=== PATIENT | male | born 1940 | race Two or more races ===

== ENCOUNTER 2020-08-21 16:10 | Emergency (ER) | payer OTHER ==
[~2020-08-21] VITALS: Ht 175.3 cm; Wt 77.1 kg
[2020-08-21 16:22] VITALS: BP 148/78
[2020-08-21 16:43] LABS: Basophils # (auto) 0.1 10 ^3/uL (0-0.2); Basophils % (auto) 0.7 % (0.0-2.0); Eosinophils # (auto) 0.1 10 ^3/uL (0-0.8); Hematocrit 40.1 % (41.0-53.0); Hemoglobin 13.8 g/dL (13.5-17.5); Lymphocytes # (auto) 2.1 10 ^3/uL (0.4-5.4); Lymphocytes % (auto) 28.9 % (10.0-50.0); Mean Corpuscular Hgb Conc. 34.4 g/dL (32.0-36.0); Mean Corpuscular Volume 95.9 fL (80.0-100.0); Monocytes # (auto) 0.7 10 ^3/uL (0-1.3); Monocytes % (auto) 9.8 % (0.0-12.0); Neutrophils # (auto) 4.4 10 ^3/uL (1.6-8.6); Neutrophils % (auto) 59.6 % (37.0-80.0); Platelet Count (auto) 252 10^3/uL (140-450); Red Blood Cells 4.18 10^6/uL (4.5-5.90); Red Cell Distribution Width 13.2 % (11.8-14.3); White Blood Cell 7.4 10^3/uL (4.4-10.8)
[2020-08-21 17:04] LABS: Calcium 8.3 mg/dL (8.5-10.1); Potassium 3.9 mmol/L (3.5-5.1)
[2020-08-21 17:05] LABS: INR 0.99 (0.9-1.15); Partial Thromboplastin Time 30.7 sec (23.0-31.2)
[2020-08-21 17:07] LABS: BUN/Creatinine Ratio 29.3; Bilirubin, Total 1.5 mg/dL (0.2-1.0); Total Protein 6.7 g/dL (6.4-8.2)
[2020-08-21] MEDS: HYDROcodone-ACET 10/325MG TAB PO ONE (17:27)
== END 2020-08-21 18:47 | disposition home or self-care (01) ==
LOC: ER 16:10
DX: R04.0 Epistaxis (principal); I48.91 Unspecified atrial fibrillation; E44.1 Mild protein-calorie malnutrition; Z68.25 Body mass index [BMI] 25.0-25.9, adult
CPT/HCPCS: 30901; 36415; 80053; 84484; 85025; 85610; 85730

== ENCOUNTER → 2020-09-07 | Emergency (ER) | payer OTHER, MEDICARE ==
[~2020-09-07] VITALS: Ht 177.8 cm; Wt 77.1 kg
[2020-09-07 16:12] VITALS: BP 156/66
[2020-09-07 16:51] LABS: Basophils # (auto) 0 10 ^3/uL (0-0.2); Basophils % (auto) 0.4 % (0.0-2.0); Eosinophils # (auto) 0 10 ^3/uL (0-0.8); Eosinophils % (auto) 0.8 % (0.0-7.0); Hematocrit 39.7 % (41.0-53.0); Hemoglobin 13.4 g/dL (13.5-17.5); Lymphocytes # (auto) 1.1 10 ^3/uL (0.4-5.4); Lymphocytes % (auto) 18.7 % (10.0-50.0); Mean Corpuscular Hemoglobin 32.1 pg (28.0-32.0); Mean Corpuscular Hgb Conc. 33.7 g/dL (32.0-36.0); Mean Corpuscular Volume 95.1 fL (80.0-100.0); Monocytes # (auto) 0.4 10 ^3/uL (0-1.3); Monocytes % (auto) 7.8 % (0.0-12.0); Neutrophils # (auto) 4.1 10 ^3/uL (1.6-8.6); Neutrophils % (auto) 72.3 % (37.0-80.0); Nucleated Red Blood Cells % 0.1 %; Platelet Count (auto) 324 10^3/uL (140-450); Red Blood Cells 4.18 10^6/uL (4.5-5.90); White Blood Cell 5.7 10^3/uL (4.4-10.8)
[2020-09-07 17:07] LABS: INR 1.06 (0.9-1.15); Partial Thromboplastin Time 30.7 sec (23.0-31.2)
[2020-09-07 17:31] LABS: Albumin 2.9 g/dL (3.4-5.0); BUN/Creatinine Ratio 18.3; Bilirubin, Total 0.6 mg/dL (0.2-1.0); Calcium 8.2 mg/dL (8.5-10.1); Potassium 3.5 mmol/L (3.5-5.1); Total Protein 6.8 g/dL (6.4-8.2)
== END | disposition home or self-care (01) ==
LOC: ER 15:34
DX: R04.0 Epistaxis (principal); I48.91 Unspecified atrial fibrillation
CPT/HCPCS: 30901; 36415; 71046; 80053; 85025; 85610; 85730

== ENCOUNTER 2020-09-08 13:41 | Emergency (ER) | payer OTHER, MEDICARE ==
[~2020-09-08] VITALS: Ht 177.8 cm; Wt 77.1 kg
[2020-09-08 15:54] VITALS: BP 140/76
== END 2020-09-08 16:24 | disposition home or self-care (01) ==
LOC: ER 13:41
DX: R04.0 Epistaxis (principal); I48.91 Unspecified atrial fibrillation

== ENCOUNTER 2024-10-26 10:59 | Emergency (ER) | payer OTHER ==
[~2024-10-26] VITALS: Ht 177.8 cm; Wt 71.8 kg
[2024-10-26 11:54] VITALS: PULSE 70; RESP 18; O2SAT 96
[2024-10-26 11:56] VITALS: PULSE 70; TEMP 97.5
[2024-10-26] MEDS: SODIUM CHLORIDE 0.9% 1,000 ML IV ONE (13:38)
--- NOTE | 2024-10-26 13:45 | DVH ---
XY CHEST PORTABLE, HISTORY: dizzy COMPARISON: None None TECHNICAL DATA: 1 view of the chest was obtained. FINDINGS: Lines and tubes: None Cardiomediastinal silhouette: normal Pulmonary vasculature: normal Lung expansion: normal Lung airspace: normal Lung interstitium: normal Pleura: normal Pneumothorax: no Bones: Unremarkable Other: no IMPRESSION: No acute intrathoracic abnormality.
--- NOTE | 2024-10-26 13:47 | DVH ---
EXAM: CT HEAD WITHOUT CONTRAST HISTORY: dizzy COMPARISON: None TECHNIQUE: Axial images of the head were obtained and reformatted in coronal and sagittal planes. All CT scans at this medical facility are performed using dose modulation techniques as appropriate t o a performed exam including the following: Automated exposure control was utilized; adjustment of th e MA and/or KV according to patient size; and use of iterative reconstruction technique. CT Dose: CTDI volume is 58 mGy. Dose-length product is 1155 mGy*cm FINDINGS: There is no evidence of acute intracranial hemorrhage, mass, mass effect midline shift. There is no h ydrocephalus or extra-axial fluid collection. Ba-white matter differentiation is maintained. The visualized paranasal sinuses and mastoid air cells are clear. The calvarium is intact. IMPRESSION: 1. No acute intracranial process. HS:Y
--- NOTE | 2024-10-26 13:56 | ED.PDOC ---
History of Present Illness HPI Comments 84Y M with PMHx BPH presents to ED for chief complaint intermittent dizziness x1year with diarrhea x1day. Pt states last dizzy episode was yesterday and it lasted approximately 2 minutes. Pt has never seen a provider for it. Pt denies chest pain and SOB. Pt denies all recent falls. Pt denies dizziness at time of ED evaluation. Chief Complaint: Dizziness Time Seen by MD: 13:20 Primary Care Provider: MONI Reviewed Notes: Nurses Notes, Medications, Allergies Allergies: Coded Allergies: NO KNOWN ALLERGIES (Unverified , 08/21/20) Information Source: Patient Mode of Arrival: Ambulatory Severity: Mild Timing: Months Duration: Since onset Past Medical History PAST MEDICAL HISTORY: AFIB Surgical History: Denies all surgeries Family History Family History: Unknown Social History Smoker: Non-Smoker Alcohol: Denies ETOH Use Drugs: Denies Drug Use Lives In: Home Constitutional: denies: chills, diaphoresis, fatigue, fever, malaise, sweats, weakness, others EENTM: denies: blurred vision, double vision, ear bleeding, ear discharge, ear drainage, ear pain, ear ringing, eye pain, eye redness, hearing loss, mouth pain, mouth swelling, nasal discharge, nose bleeding, nose congestion, nose pain, photophobia, tearing, throat pain, throat swelling, voice changes, others Respiratory: denies: cough, hemoptysis, orthopnea, SOB at rest, shortness of breath, SOB with excertion, stridor, wheezing, others Cardiovascular: denies: chest pain, dizzy spells, diaphoresis, Dyspnea on exertion, edema, irregular heart beat, left arm pain, lightheadedness, palpitations, PND, syncope, others Gastrointestinal: reports: diarrhea; denies: abdomen distended, abdominal pain, blood streaked bowels, constipated, dysphagia, difficulty swallowing, hematemesis, melena, nausea, poor appetite, poor fluid intake, rectal bleeding, rectal pain, vomiting, others Genitourinary: denies: burning, dysuria, flank pain, frequency, hematuria, i ncontinence, penile discharge, penile sore, pain, testicle pain, testicle swelling, urgency, others Neurological: reports: dizziness; denies: fainting, headache, left sided numbness, left sided weakness, numbness, paresthesia, pre-existing deficit, right sided numbness, right sided weakness, seizure, speech problems, tingling, tremors, weakness, others Musculoskeletal: denies: back pain, gout, joint pain, joint swelling, muscle pain, muscle stiffness, neck pain, others Integumetry: denies: bruises, change in color, change in hair/nails, dryness, l aceration, lesions, lumps, rash, wounds, others Allergic/Immunocompromised: denies: Difficulty Healing, Frequent Infections, Hives, Itching, others Hematologic/Lymphatic: denies: anemia, blood clots, easy bleeding, easy bruising, swollen glands, others Endocrine: denies: excessive hunger, excessive sweating, excessive thirst, excessive urination, flushing, intolerance to cold, intolerance to heat, unexplained weight gain, unexplained weight loss, others Psychiatric: denies: anxiety, bipolar disorder, depression, hopeless, panic disorder, schizophrenia, sleepless, suicidal, others All Other Systems: Reviewed and Negative Physical Exam General Appearance: No Apparent Distress, Normal HEENT: Normal ENT Inspection, Pharynx Normal, TMs Normal Neck: Full Range of Motion, Non-Tender, Normal, Normal Inspection Respiratory: Chest Non-Tender, Lungs Clear, No Accessory Muscle Use, No Respiratory Distress, Normal Breath Sounds Cardiovascular: No Edema, No JVD, No Murmur, No Gallop, Normal Peripheral Pulses, Regular Rate/Rhythm Breast Exam: Deferred Gastrointestinal: No Organomegaly, Non Tender, No Pulsatile Mass, Normal Bowel Sounds, Soft Genitalia: Deferred Pelvic: Deferred Rectal: Deferred Extremities: No calf tenderness, Normal capillary refill, Normal inspection, Normal range of motion, Non-tender, No pedal edema Musculoskeletal : Apperance: Normal 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 Was a procedure done?: No Differential Dx Considerations may include: Dehydration, vertigo, CVA, ACS, electrolyte abnormality, renal dysfunction X-Ray, Labs, Meds, VS Vital Signs Date Time Temp Pulse Resp B/P (MAP) Pulse Ox O2 Delivery O2 Flow Rate FiO2 10/26/24 14:25 65 136/65 (88) 97 10/26/24 11:56 97.5 70 18 133/73 (93) 96 97.5 10/26/24 11:54 70 18 96 Room Air* 0 21 10/26/24 11:38 69 10/26/24 11:36 97.7 70 14 99/53 (68) 95 Lab Test 10/26/24 13:46 Range/Units White Blood Count 5.0 4.4-10.8 10^3/uL Red Blood Count 4.27 L 4.5-5.90 10^6/uL Hemoglobin 14.1 13.5-17.5 g/dL Hematocrit 40.2 L 41.0-53.0 % Mean Corpuscular Volume 94.0 80.0-100.0 fL Mean Corpuscular Hemoglobin 32.9 H 28.0-32.0 pg Mean Corpuscular Hemoglobin Concent 35.0 32.0-36.0 g/dL Red Cell Distribution Width 14.3 11.8-14.3 % Platelet Count 258 140-450 10^3/uL Mean Platelet Volume 6.4 L 6.9-10.8 fL Neutrophils (%) (Auto) 57.9 37.0-80.0 % Lymphocytes (%) (Auto) 29.7 10.0-50.0 % Monocytes (%) (Auto) 10.3 0.0-12.0 % Eosinophils (%) (Auto) 1.1 0.0-7.0 % Basophils (%) (Auto) 1.0 0.0-2.0 % Neutrophils # (Auto) 2.9 1.6-8.6 10 ^3/uL Lymphocytes # (Auto) 1.5 0.4-5.4 10 ^3/uL Monocytes # (Auto) 0.5 0-1.3 10 ^3/uL Eosinophils # (Auto) 0.1 0-0.8 10 ^3/uL Basophils # (Auto) 0.1 0-0.2 10 ^3/uL Nucleated Red Blood Cells 0.1 % Sodium Level 140 136-145 mmol/L Potassium Level 4.1 3.5-5.1 mmol/L Chloride Level 107 98-107 mmol/L Carbon Dioxide Level 25 20-31 mmol/L Anion Gap 8 5-15 Blood Urea Nitrogen 18 9-23 mg/dL Creatinine 0.79 0.700-1.30 mg/dL Glomerular Filtration Rate Calc 87 >90 mL/min BUN/Creatinine Ratio 22.8 H 10.0-20.0 Serum Glucose 89 74-106 mg/dL Calcium Level 9.7 8.7-10.4 mg/dL Troponin I High Sensitivity 7 </=54 ng/L Lipase 31 12-53 U/L Current Medications Medications (Trade) Dose Ordered Sig/Trent Route Start Time Stop Time Status Last Admin Sodium Chloride 1,000 ml @ 1,000 mls/hr Q1H ONCE IV 10/26/24 13:30 10/26/24 14:29 DC 10/26/24 13:38 [place] [id number] Ph: [phone] DIAGNOSTIC IMAGING Diagnostic Imaging Report : [id number] Signed PATIENT: LUCIANA PRATT ACCT: [id number] UNIT: [id number] : 1940 LOC: ER ROOM / BED: / AGE / SEX: 84 / M ADM STATUS: REG ER SERVICE [id number] ORDERING PHYSICIAN: SHIVA CARVER MD PROCEDURE(s): HWOCT - HEAD WITHOUT CONTRAST REASON: dizzy ORDER NUMBER(s): [id number], ACCESSION NUMBER(s): [id number] EXAM: CT HEAD WITHOUT CONTRAST HISTORY: dizzy COMPARISON: None TECHNIQUE: Axial images of the head were obtained and reformatted in coronal and sagittal planes. All CT scans at this medical facility are performed using dose modulation techniques as appropriate to a performed exam including the following: Automated exposure control was utilized; adjustment of the MA and/or KV according to patient size; and use of iterative reconstruction technique. CT Dose: CTDI volume is 58 mGy. Dose-length product is 1155 mGy*cm FINDINGS: There is no evidence of acute intracranial hemorrhage, mass, mass effect midline shift. There is no hydrocephalus or extra-axial fluid collection. Ba-white matter differentiation is maintained. The visualized paranasal sinuses and mastoid air cells are clear. The calvarium is intact. IMPRESSION: 1. No acute intracranial process. HS:Y ATED BY: SANDER VALDEZ MD DICTATED DATE/TIME: 01/17/25 1345 SIGNED BY: SANDER VALDEZ MD SIGNED DATE/TIME: 10/26/241344 CC: [place] [address] Ph: [phone] DIAGNOSTIC IMAGING Diagnostic Imaging Report : [id number] Signed PATIENT: LUCIANA PRATT ACCT: [id number] UNIT: [id number] : 1940 LOC: ER ROOM / BED: / AGE / SEX: 84 / M ADM STATUS: REG ER SERVICE ORDERING PHYSICIAN: SHIVA CARVER MD PROCEDURE(s): CXRP - CHEST PORTABLE REASON: dizzy ORDER NUMBER(s): [id number], ACCESSION NUMBER(s): [id number] XY CHEST PORTABLE, HISTORY: dizzy COMPARISON: None None TECHNICAL DATA: 1 view of the chest was obtained. FINDINGS: Lines and tubes: None Cardiomediastinal silhouette: normal Pulmonary vasculature: normal Lung expansion: normal Lung airspace: normal Lung interstitium: normal Pleura: normal Pneumothorax: no Bones: Unremarkable Other: no IMPRESSION: No acute intrathoracic abnormality. ATED BY: JUAN M ANTONIO MD DICTATED DATE/TIME: 10/26/241341 SIGNED BY: JUAN M ANTONIO MD SIGNED DATE/TIME: 10/26/241341 CC: X-Ray, Labs, Meds, VS Comment 84-year-old male here today with complaints of dizziness that lasted approximately 2 minutes yesterday but has been intermittent over the last year. Vital signs stable, afebrile. Physical exam as above without any acute findings. Neurologic exam normal. Patient also with a normal gait. Labs overall reassuring without evidence of end-organ damage. CT scan of the head without any evidence of acute pathology. Chest x-ray without any evidence of acute pathology as well. Patient was given a L of normal saline via IV and stated that he felt significantly improved afterwards. I had a long discussion with the patient about maintaining good hydration and drinking plenty of water as this may be the source of his intermittent dizziness. Patient expressed understanding of this. Patient was also instructed to follow up with his primary care provider within 2-3 days for re-evaluation. Patient was instructed to return to the emergency department should he have any return of these dizziness, vision changes, chest pain, numbness, weakness, fevers, p.o. intolerance, or any other concerning symptoms. Patient expressed understanding and was discharged home in stable condition ambulating with a steady gait no distress and without any assistance. Time of 1ST Reevaluation: 13:50 Reevaluation 1ST: Unchanged Patient Education/Counseling: Diagnosis, Treatment Family Education/Counseling: No Family Present Departure 1 Departure Time of Disposition: 22:08 Impression: Primary Impression: Dizzy Additional Impression: Dehydration Disposition: 01 HOME / SELF CARE / HOMELESS Condition: Stable Critical Care Note Critical Care Time?: No Stability Stability form required: No Heart Score Heart Score: Heart Score Response (Comments) Value History N/A 0 EKG N/A 0 Age N/A 0 Risk Factors N/A 0 Troponin N/A 0 Total 0 I personally scribed for SHIVA CARVER [facility] on 10/26/24 at 13:55. Electronically submitted by Oksana Christie ([employer]). I personally scribed for SHIVA CARVER MD ([facility] on 10/26/24 at 13:57. Electronically submitted by Oksana Christie ([employer]). I personally scribed for SHIVA CARVER MD ([facility] on 10/26/24 at 13:57. Electronically submitted by Oksana Christie ([employer]). SHIVA CARVER MD Oct 26, 2024 13:55
[2024-10-26 14:25] VITALS: BP 136/65; RESP 65; O2SAT 97
[2024-10-26 14:26] LABS: Basophils # (auto) 0.1 10 ^3/uL (0-0.2); Eosinophils # (auto) 0.1 10 ^3/uL (0-0.8); Eosinophils % (auto) 1.1 % (0.0-7.0); Hematocrit 40.2 % (41.0-53.0); Hemoglobin 14.1 g/dL (13.5-17.5); Lymphocytes # (auto) 1.5 10 ^3/uL (0.4-5.4); Lymphocytes % (auto) 29.7 % (10.0-50.0); Mean Corpuscular Hemoglobin 32.9 pg (28.0-32.0); Monocytes # (auto) 0.5 10 ^3/uL (0-1.3); Monocytes % (auto) 10.3 % (0.0-12.0); Neutrophils # (auto) 2.9 10 ^3/uL (1.6-8.6); Neutrophils % (auto) 57.9 % (37.0-80.0); Nucleated Red Blood Cells % 0.1 %; Platelet Count (auto) 258 10^3/uL (140-450); Red Blood Cells 4.27 10^6/uL (4.5-5.90); Red Cell Distribution Width 14.3 % (11.8-14.3)
[2024-10-26 14:27] LABS: Potassium 4.1 mmol/L (3.5-5.1); Sodium 140 mmol/L (136-145)
[2024-10-26 14:28] LABS: Anion Gap 8 (5-15); Calcium 9.7 mg/dL (8.7-10.4); Carbon Dioxide 25 mmol/L (20-31)
[2024-10-26 14:33] LABS: BUN/Creatinine Ratio 22.8 (10.0-20.0); Blood Urea Nitrogen 18 mg/dL (9-23); Glucose 89 mg/dL (74-106)
[2024-10-26 14:35] LABS: Chloride 107 mmol/L (98-107)
--- NOTE | 2024-10-29 07:09 | ECG ---
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
== END 2024-10-26 17:52 | disposition left against medical advice (07) ==
LOC: ER 10:59
DX: E86.0 Dehydration (principal); R42 Dizziness and giddiness; I48.91 Unspecified atrial fibrillation
CPT/HCPCS: 36415; 70450; 71045; 80048; 83690; 84484; 85025; 93005; 96360; 99285; J7030